=== PATIENT | female | born 2000 | race Caucasian/White ===

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

== ENCOUNTER → 2022-09-06 | Outpatient (CLI) | payer MEDICAID, SELFPAY ==
--- NOTE | 2022-09-06 08:08 | VDLE_ITS ---
Reason For Study: Soft tissue disorder Procedure LEFT This is a venous duplex using B-mode, color GSV is normal. flow and spectral Doppler. CFV is compressible, spontaneous, phasic, Exam performed in department. competent, and demonstrates normal A preliminary report was called and/or faxed augmentation. to Dr. George. FV is compressible, spontaneous, phasic, competent and demonstrates normal augmentation. POP V is compressible, spontaneous, phasic, competent and demonstrates normal augmentation. T/P Trunk is compressible. PTV is compressible. LT PerV is compressible. VL/Venous Duplex US, Unilateral Interpretation Summary There is no evidence of left lower extremity deep vein thrombosis. Left great s aphenous vein appears patent and compressible segmentally. Ordering Physician: LUCRECIA DAVIDSON Referring Physician: Leti George Performed By: Betty Pizano, CESAR, RVT
== END | disposition home or self-care (01) ==
LOC: CVS 08:06
PROVIDERS: PCP Pediatrics
DX: M79.89 Other specified soft tissue disorders (principal)
CPT/HCPCS: 93971

== ENCOUNTER 2022-11-09 15:47 | Emergency (ER) | payer MEDICAID, SELFPAY ==
[2022-11-09 15:53] VITALS: BP 167/83; PULSE 63; RESP 17; TEMP 36.3; O2SAT 97; BMI 27.4
[2022-11-09 19:28] LABS: Red Blood Cells-Urine 0 SEEN /hpf (0-5)
[2022-11-09 19:44] VITALS: PULSE 73; RESP 18; TEMP 36.4; O2SAT 96
[2022-11-09 19:50] LABS: Color, Urine Yellow (Yellow); Glucose, Dipstick Normal (Normal); Ketone-Dipstick 50 mg/dl (Negative); Leukocyte Esterase-Dipstick 25 /ul (Negative); Nitrite-Dipstick Negative (Negative); Occult Blood-Urine Negative /ul (Negative); Protein-Dipstick 30 mg/dl (Negative); Urine Clarity Sl. Cloudy (Clear); Urine Urobilinogen 4 mg/dl (Normal); Urine pH 6.5 (5.0 - 8.0)
[2022-11-09] MEDS: 0.9% Normal Saline 1,000 ML 999 ML IV (19:52)
[2022-11-09] MEDS: Ondansetron 4 MG/2 ML Vial IV (19:53)
[2022-11-09 19:54] VITALS: BP 148/96; PULSE 67; RESP 18; TEMP 36.4; O2SAT 99
[2022-11-09 20:03] LABS: Absolute Lymphocyte Count 3.29 X10^3/uL (0.83-4.51); Absolute Neutrophil Count 6.6 X10^3/uL (2.0-7.7); Basophil# 0.04 X10^3/uL; Basophil% 0.4 % (0-1); Eosinophil# 0.06 X10^3/uL; Eosinophils% 0.6 % (0-5); Hematocrit 45.8 % (37-47); Hemoglobin 14.5 g/dL (12.0-15.0); Lymphocyte # 3.29 X10^3/ul (0.83-4.51); Lymphocyte % 30.6 % (19-41); Mean Corp Hgb Conc 31.7 g/dL (32-36); Mean Corpuscular Volume 85.3 fL (81-99); Mean Platelet Vol. 10.4 fl (6.2-12.0); Monocyte% 6.5 % (0-10); NRBC Flagged by Analyzer 0 % (0-5); Neutrophil # 6.63 X10^3/uL (2.7-7.7); Neutrophil % 61.5 % (47-70); POSITIVE MORPHOLOGY YES; Platelet Count 329 K/mm3 (150-450); RBC Distribution Width CV 12.3 % (11.6-14.6); RBC Distribution Width SD 37.9 fl (35.1-43.9); Red Blood Count 5.37 M/mm3 (4.2-5.4); White Blood Count 10.8 K/mm3 (4.4-11.0)
[2022-11-09 20:12] LABS: Differential Indicated SCAN CRITERIA MET
[2022-11-09 20:19] LABS: Urine Bilirubin Dipstick 1 mg/dL (Negative)
[2022-11-09 20:21] LABS: Anion Gap 8 (5-15); BUN 13 mg/dL (7-18); BUN/Creat Ratio 16.9 RATIO (10-20); Calcium,Total 9.8 mg/dL (8.5-10.1); Chloride 105 mmol/L (98-107); Creatinine, Serum 0.77 mg/dL (0.55-1.02); EST Glomerular Filtration Rate 102 mL/min (>60); Est Glom Filt Rate - Afr Amer 123 mL/min (>60); Glucose 92 mg/dL (74-106); Potassium 3.6 mmol/L (3.5-5.1); Sodium Level 140 mmol/L (136-145)
[2022-11-09 20:21] LABS: Amorphous Sediment 2+ URATE; Bacteria RARE /hpf (None Seen); Mucous, Urine 2+ /hpf (<or=2+); Squamous Epithelial Cells - UA 0-5 SEEN /hpf (5-10); White Blood Cells 0-5 SEEN /hpf (0-5)
[2022-11-09 20:23] LABS: Lipase 60 U/L (73-393)
[2022-11-09 20:26] LABS: AST(SGOT) 11 U/L (15-37); Alanine Aminotransfer ALT/SGPT 15 U/L (13-56); Albumin, Serum 3.9 g/dL (3.2-5.0); Alkaline Phosphatase 83 U/L (45-117); Bilirubin, Direct 0.09 mg/dL (0.00-0.30); Globulin 4.6 g/dL (2.2-4.2); Protein, Total 8.5 g/dL (6.4-8.2)
[2022-11-09 20:44] LABS: Differential Comment SCANNED
--- NOTE | 2022-11-09 20:49 | EX.ED.DYSGE1 ---
HPI <EVELYN Caruso - Last Filed: 11/09/22 23:01> History of Present Illness Chief Complaint: Abd Pain Narrative Narrative: Patient presents today with her mom for abdominal pain, nausea, and vomiting that she has had for over 2 years. She states the vomiting does not occur all the time but every other month or so she will have 3 to 7 days of vomiting, nausea, and epigastric pain. She states sometimes she will eat and feel completely fine and then suddenly feel nauseous and vomit which will then lead her to vomit for several more days. Patient has had an endoscopy and a colonoscopy and sees a GI doctor. She is set to have another endoscopy at the end of January. Mom states they came in today because she has been vomiting since and was unable to get into see her GI doctor today. Patient states she has a prescription for Zofran but sometimes the feeling of it on her tongue will make her nauseous and vomit. She denies hematemesis, hematochezia, melena, diarrhea, prior abdominal surgeries, and fever. PFSH <EVELYN Caruso - Last Filed: 11/09/22 23:01> [facility] Home Medications NK 11/09/22 [History Last Taken Unknown] Allergy/AdvReac Type Severity Reaction Status Date / Time No Known Allergies Allergy Verified 11/09/22 19:34 Social History Smoking Status: Never smoker substance use type: does not use ROS <EVELYN Caruso - Last Filed: 11/09/22 23:01> ROS ED Constitutional Constitutional ED: Denies chills, fever(s) or sweats Eyes Eyes: Denies blurry vision, change in vision or diplopia ENT ENT ED: Reports rhinorrhea and sore throat Cardiovascular Cardiovascular: Denies chest pain, palpitations or racing heartbeat Respiratory/Chest Respiratory/Chest: Denies cough, dyspnea or dyspnea on exertion Gastrointestinal Gastrointestinal: Reports abdominal pain, nausea and vomiting; Denies constipation, diarrhea or melena Genitourinary Genitourinary ED: Denies dysuria, hematuria or urinary frequency Musculoskeletal Musculoskeletal: Denies arthralgias, back pain or myalgias Integumentary Denies abscess, Abrasions or rash Neurologic Neurologic: Denies headache(s), paresthesias or weakness Psychiatric Psychiatric: Denies anxiety, depression or suicidal ideation EXAM <EVELYN Caruso - Last Filed: 11/09/22 23:01> Physical Exam Const Vital Signs: 11/09/22 15:53 11/09/22 19:44 11/09/22 19:54 Temperature 97.3 F L 97.6 F L 97.6 F L Temperature Source Temporal Temporal Temporal Pulse Rate 63 73 67 Respiratory Rate 17 18 18 Blood Pressure 167/83 H 148/96 H Blood Pressure Mean 111 113 Pulse Ox 97 96 99 Oxygen Delivery Method Room Air Room Air Room Air 11/09/22 21:18 11/09/22 21:18 11/09/22 22:11 Temperature 97.1 F L 97.1 F L 97.3 F L Temperature Source Temporal Temporal Temporal Pulse Rate 62 67 102 H Respiratory Rate 18 18 18 Blood Pressure 114/58 L 114/58 L 139/53 H Blood Pressure Mean 76 76 81 Pulse Ox 97 97 97 Oxygen Delivery Method Room Air Room Air Room Air Positive well nourished and well developed General Appearance ED: well developed and NAD HEENT Reports moist mucous membranes Negative for trauma Eyes PERRL and EOMs intact bilaterally Neck no lymphadenopathy and supple Chest Wall inspection of chest normal Resp normal respiratory effort and clear to auscultation bilaterally Cardio regular rate, regular rhythm and no murmurs GI non-distended and no masses GI Narrative: Patient has generalized abdominal tenderness to palpation. Negative Infante sign, negative McBurney's point tenderness. Negative rebound tenderness and no guarding. Auscultation: normoactive bowel sounds Palpation: soft Back/Spine no CVA tenderness Extremity normal to inspection Neuro oriented x3, CN's II-XII intact bilaterally and no sensory deficits noted Sensorium / Orientation: alert Motor Exam: strength 5/5 throughout Psych mental status grossly normal Skin no rashes or lesions noted, no wounds and skin turgor normal <Dr. Jesus Torres MD - Last Filed: 11/11/22 23:09> Physical Exam Const Vital Signs: 11/09/22 15:53 11/09/22 19:44 11/09/22 19:54 Temperature 97.3 F L 97.6 F L 97.6 F L Temperature Source Temporal Temporal Temporal Pulse Rate 63 73 67 Respiratory Rate 17 18 18 Blood Pressure 167/83 H 148/96 H Blood Pressure Mean 111 113 Pulse Ox 97 96 99 Oxygen Delivery Method Room Air Room Air Room Air 11/09/22 21:18 11/09/22 21:18 11/09/22 22:11 Temperature 97.1 F L 97.1 F L 97.3 F L Temperature Source Temporal Temporal Temporal Pulse Rate 62 67 102 H Respiratory Rate 18 18 18 Blood Pressure 114/58 L 114/58 L 139/53 H Blood Pressure Mean 76 76 81 Pulse Ox 97 97 97 Oxygen Delivery Method Room Air Room Air Room Air [facility] <EVELYN Caruso - Last Filed: 11/09/22 23:01> [facility] Narrative Medical decision making narrative: I have personally performed a face to face assessment of the patient and have reviewed the NATASHA Note. I performed a substantive portion of the visit including all aspects of the following. My cage findings include: History is remarkable for nausea vomiting that is started over 2 years ago. Because of significant weight loss approximately 2 years ago of 30+ pounds child was seen by label stitcher at [facility]. EGD and colonoscopy were normal. The nurse practitioner from the gastro office recommended work-up for gallbladder pancreatitis etc. She denies right upper or left upper quadrant pain she has periumbilical pain. She had periumbilical pain in the past. She reports 2-3 episodes of emesis per day. She has had up to 5 or 6. She also reports intermittent diarrhea. She has not noted blood or mucus in her diarrhea. There has been no documented fever. Exam is affect is flat. HEENT exam reveals slightly dry mucosa. Heart is regular without murmur, gallop or rub. Lungs are clear to auscultation. Abdomen is soft nontender slightly tympanitic. There is no hepatosplenomegaly. Negative clinical Infante sign. There is no CVA tenderness noted. Medical Decision Making suspect child has cyclic vomiting. Blood work was ordered per nurse protocol. Cyclic vomiting order set was initiated. Will reassess. Other additions or changes: [None] Patient was given IV fluids and Zofran. She is in no acute distress and nontoxic-appearing. CBC and BMP are normal. No acute cystitis. Lipase normal. I do not feel imaging is necessary. Work-up for cyclic vomiting syndrome was initiated. Upon reexamination patient stated she was feeling better. Not too long after this, patient stated she felt like she could vomit again and was dizzy. On reassessment after that patient felt she could be discharged home. She has been given referral for the [facility]. Patient will be discharged home in stable condition. Mom and patient are comfortable with plan. Lab Data Lab results narrative: CBC and differential are normal. Basic metabolic panel is normal. Your is positive for ketones. Specific gravity is 1.020. There is no sent fax in. was no. Liver profile is negative and lipase is below normal. Labs: Laboratory Results - last 24 hr 11/09/22 11/09/22 11/09/22 19:11 19:50 19:50 WBC 10.8 RBC 5.37 Hgb 14.5 Hct 45.8 MCV 85.3 MCH 27.0 MCHC 31.7 L RDW Std Deviation 37.9 RDW Coeff of Kim 12.3 Plt Count 329 MPV 10.4 Immature Gran % (Auto) 0.400 Neut % (Auto) 61.5 Lymph % (Auto) 30.6 Irwin % (Auto) 6.5 Eos % (Auto) 0.6 Baso % (Auto) 0.4 Absolute Neuts (auto) 6.6 Absolute Lymphs (auto) 3.29 Nucleated RBC % 0 Differential Comment SCANNED Sodium 140 Potassium 3.6 Chloride 105 Carbon Dioxide 27.0 Anion Gap 8 BUN 13 Creatinine 0.77 Estim Creat Clear Calc 121.80 Est GFR (MDRD) Af Amer 123 Est GFR (MDRD) Non-Af 102 BUN/Creatinine Ratio 16.9 Glucose 92 Calcium 9.8 Total Bilirubin Direct Bilirubin AST ALT Alkaline Phosphatase Total Protein Albumin Globulin Lipase Serum , Qual Urine Color Yellow Urine Clarity Sl. Cloudy Urine pH 6.5 Ur Specific [place] 1.020 Urine Protein 30 H Urine Glucose (UA) Normal Urine Ketones 50 H Urine Occult Blood Negative Urine Nitrite Negative Urine Bilirubin 1 H Urine Urobilinogen 4 H Ur Leukocyte Esterase 25 H Urine RBC 0 SEEN Urine WBC 0-5 SEEN Ur Squamous Epith Cells 0-5 SEEN Amorphous Sediment 2+ URATE Urine Bacteria RARE Urine Mucus 2+ 11/09/22 11/09/22 11/09/22 19:50 19:50 20:25 WBC RBC Hgb Hct MCV MCH MCHC RDW Std Deviation RDW Coeff of Kim Plt Count MPV Immature Gran % (Auto) Neut % (Auto) Lymph % (Auto) Irwin % (Auto) Eos % (Auto) Baso % (Auto) Absolute Neuts (auto) Absolute Lymphs (auto) Nucleated RBC % Differential Comment Sodium Potassium Chloride Carbon Dioxide Anion Gap BUN Creatinine Estim Creat Clear Calc Est GFR (MDRD) Af Amer Est GFR (MDRD) Non-Af BUN/Creatinine Ratio Glucose Calcium Total Bilirubin 0.40 Direct Bilirubin 0.09 AST 11 L ALT 15 Alkaline Phosphatase 83 Total Protein 8.5 H Albumin 3.9 Globulin 4.6 H Lipase 60 L Serum , Qual NEGATIVE Urine Color Urine Clarity Urine pH Ur Specific [place] Urine Protein Urine Glucose (UA) Urine Ketones Urine Occult Blood Urine Nitrite Urine Bilirubin Urine Urobilinogen Ur Leukocyte Esterase Urine RBC Urine WBC Ur Squamous Epith Cells Amorphous Sediment Urine Bacteria Urine Mucus <Dr. Jesus Torres MD - Last Filed: 11/11/22 23:09> [facility] Narrative Medical decision making narrative: I have personally performed a face to face assessment of the patient and have reviewed the NATASHA Note. I performed a substantive portion of the visit including all aspects of the following. My cage findings include: History is remarkable for nausea vomiting that is started over 2 years ago. Because of significant weight loss approximately 2 years ago of 30+ pounds child was seen by label stitcher at [facility]. EGD and colonoscopy were normal. The nurse practitioner from the gastro office recommended work-up for gallbladder pancreatitis etc. She denies right upper or left upper quadrant pain she has periumbilical pain. She had periumbilical pain in the past. She reports 2-3 episodes of emesis per day. She has had up to 5 or 6. She also reports intermittent diarrhea. She has not noted blood or mucus in her diarrhea. There has been no documented fever. Exam is affect is flat. HEENT exam reveals slightly dry mucosa. Heart is regular without murmur, gallop or rub. Lungs are clear to auscultation. Abdomen is soft nontender slightly tympanitic. There is no hepatosplenomegaly. Negative clinical Infante sign. There is no CVA tenderness noted. Medical Decision Making suspect child has cyclic vomiting. Blood work was ordered per nurse protocol. Cyclic vomiting order set was initiated. Will reassess. Other additions or changes: [None] Lab Data Attestation: I reviewed the patient's lab results. Lab results narrative: CBC and differential are normal. Basic metabolic panel is normal. Your is positive for ketones. Specific gravity is 1.020. There is no sent fax in. was no. Had a profile is negative and lipase is below normal. Labs: Laboratory Results - last 24 hr 11/09/22 11/09/22 11/09/22 19:11 19:50 19:50 WBC 10.8 RBC 5.37 Hgb 14.5 Hct 45.8 MCV 85.3 MCH 27.0 MCHC 31.7 L RDW Std Deviation 37.9 RDW Coeff of Kim 12.3 Plt Count 329 MPV 10.4 Immature Gran % (Auto) 0.400 Neut % (Auto) 61.5 Lymph % (Auto) 30.6 Irwin % (Auto) 6.5 Eos % (Auto) 0.6 Baso % (Auto) 0.4 Absolute Neuts (auto) 6.6 Absolute Lymphs (auto) 3.29 Nucleated RBC % 0 Differential Comment SCANNED Sodium 140 Potassium 3.6 Chloride 105 Carbon Dioxide 27.0 Anion Gap 8 BUN 13 Creatinine 0.77 Estim Creat Clear Calc 121.80 Est GFR (MDRD) Af Amer 123 Est GFR (MDRD) Non-Af 102 BUN/Creatinine Ratio 16.9 Glucose 92 Calcium 9.8 Total Bilirubin Direct Bilirubin AST ALT Alkaline Phosphatase Total Protein Albumin Globulin Lipase Serum , Qual Urine Color Yellow Urine Clarity Sl. Cloudy Urine pH 6.5 Ur Specific [place] 1.020 Urine Protein 30 H Urine Glucose (UA) Normal Urine Ketones 50 H Urine Occult Blood Negative Urine Nitrite Negative Urine Bilirubin 1 H Urine Urobilinogen 4 H Ur Leukocyte Esterase 25 H Urine RBC 0 SEEN Urine WBC 0-5 SEEN Ur Squamous Epith Cells 0-5 SEEN Amorphous Sediment 2+ URATE Urine Bacteria RARE Urine Mucus 2+ 11/09/22 11/09/22 11/09/22 19:50 19:50 20:25 WBC RBC Hgb Hct MCV MCH MCHC RDW Std Deviation RDW Coeff of Kim Plt Count MPV Immature Gran % (Auto) Neut % (Auto) Lymph % (Auto) Irwin % (Auto) Eos % (Auto) Baso % (Auto) Absolute Neuts (auto) Absolute Lymphs (auto) Nucleated RBC % Differential Comment Sodium Potassium Chloride Carbon Dioxide Anion Gap BUN Creatinine Estim Creat Clear Calc Est GFR (MDRD) Af Amer Est GFR (MDRD) Non-Af BUN/Creatinine Ratio Glucose Calcium Total Bilirubin 0.40 Direct Bilirubin 0.09 AST 11 L ALT 15 Alkaline Phosphatase 83 Total Protein 8.5 H Albumin 3.9 Globulin 4.6 H Lipase 60 L Serum , Qual NEGATIVE Urine Color Urine Clarity Urine pH Ur Specific [place] Urine Protein Urine Glucose (UA) Urine Ketones Urine Occult Blood Urine Nitrite Urine Bilirubin Urine Urobilinogen Ur Leukocyte Esterase Urine RBC Urine WBC Ur Squamous Epith Cells Amorphous Sediment Urine Bacteria Urine Mucus Discharge Plan Triage Chief Complaint: Abd Pain ED Midlevel Provider: Ksenia Chino ED Provider: Jesus Torres Dx/Rx/DC Orders Clinical Impression: Cyclic vomiting syndrome Instructions: ED Cyclic Vomiting Syndrome Prescriptions: No Action NK Stand Alone Forms: ED Work / School Excuse Primary Care Provider: Leti George Referrals: Leti George MD [Primary Care Provider] - Behavioral,Health [facility] [Group of Physicians] - 5-7 Days (Evaluate for treatment for cyclic vomiting syndrome.) Activity Restrictions/Additional Instructions: Please follow-up with the psychiatrist we have referred you to. Please return if symptoms worsen. Disposition Disposition: Home, Self Care Discharge Date/Time: 11/09/22 23:12
[2022-11-09] MEDS: LORazepam 2 MG/ML Syringe 0.5 MG IV (20:57)
[2022-11-09 21:02] LABS: Internal QC Validated? YES +Cl - CLEAR BKGD; Pregnancy, Serum, hCG Quali. NEGATIVE Negative
[2022-11-09] MEDS: Famotidine 200 MG/20 ML MDV 20 MG in 0.9% Normal Saline (Pres. free 8 ML 300 MG IV (21:08)
[2022-11-09 21:18] VITALS: BP 114/58; PULSE 62; PULSE 67; RESP 18; TEMP 36.2; O2SAT 97
[2022-11-09 22:11] VITALS: BP 139/53; PULSE 102; RESP 18; TEMP 36.3; O2SAT 97
[2022-11-09 22:57] VITALS: BP 114/69; PULSE 84; RESP 18; O2SAT 98
== END 2022-11-09 23:12 | disposition home or self-care (01) ==
PROVIDERS: Physician Assistant; Emergency Provider Emergency Medicine; PCP Pediatrics; Visit Provider Emergency Medicine
DX: R11.15 Cyclical vomiting syndrome unrelated to migraine (principal); R11.2 Nausea with vomiting, unspecified; R19.7 Diarrhea, unspecified; R10.13 Epigastric pain; R10.33 Periumbilical pain; R63.4 Abnormal weight loss; R42 Dizziness and giddiness
CPT/HCPCS: 80048; 80076; 81001; 83690; 84703; 85025; 96361; 96365; 96375; 99283; J7030; J7050; A4216; J2405; J3490